=== PATIENT | female | born 1960 | race Caucasian/White ===

== ENCOUNTER 2018-03-15 13:35 | Emergency (ER) | payer BC ==
[2018-03-15] MEDS ORDERED: LET GEL TOPICAL 1 EA SYR TP ONE (13:56)
[2018-03-15] MEDS ORDERED: DOXYCYCLINE HYCLATE 100 MG CAP/TAB PO ONE (13:59)
--- NOTE | 2018-03-15 14:04 | EDPHY ---
H & P Time Seen by Provider: 03/15/18 13:45 HPI/ROS: This patient reports she pulled a tick off of her left posterior thigh while in [place] 1 week ago. Over the past 2 days she has developed erythema itching and mild burning discomfort to the area and is concerned about local infection. She has no other associated symptoms. Her daughter brought her in by private vehicle for further evaluation. ROS: Constitutional: No fevers or flu-like symptoms. No fatigue. HEENT: No lymphadenopathy or other complaints. No headache. Neuro: No numbness tingling or paresthesias. No vision changes. No headache. Pulmonary: No complaints Cardiovascular: No complaints GI: No nausea vomiting Integumentary: No skin rash elsewhere in this patient. No purulent drainage. 7 point ROS is otherwise negative. Past Medical/Surgical History: Hypertension. Mild obesity. Otherwise healthy Smoking Status: Never smoked Physical Exam: Physical Exam Vital signs are normal. General: No acute distress HEENT: Atraumatic. Eyes: Pupils equal and react to light. Extraocular motions are intact. Lungs: No respiratory distress. Cardiac: Brisk capillary refill is intact throughout. Skin: Patient has a 4 x 7 cm area of erythema and mild tenderness without fluctuance. Neuro: Alert and oriented x3 with no sensorimotor deficits. Initial differential diagnosis: Insect bite with local cellulitis. Potential initial target lesion from early Lyme Constitutional: Initial Vital Signs Temperature (C) 36.9 C 03/15/18 13:42 Heart Rate 91 03/15/18 13:42 Respiratory Rate 16 03/15/18 13:42 Blood Pressure 156/90 H 03/15/18 13:42 O2 Sat (%) 94 03/15/18 13:42 O2 Delivery Mode Room Air Allergies/Adverse Reactions: amoxicillin Allergy (Verified 03/15/18 13:44) PT REPORTS RASH Home Medications: Medication Instructions Recorded Cephalexin [Keflex (*)] 500 mg PO TID #21 cap 03/15/18 Doxycycline Hyclate [Vibramycin 100 mg PO BID #20 cap 03/15/18 100 MG (*)] Hydrochlorothiazide 03/15/18 Lisinopril 03/15/18 MDM/Departure - MDM Medications Given: Discontinued Medications Tetracaine/Epinephrine/Lidocaine (Let Gel Topical) 1 ea TP EDNOW ONE Stop: 03/15/18 13:57 Last Admin: 03/15/18 14:00 Dose: 1 ea ED Course/Re-evaluation: Given this patient's lack of any flu-like symptoms fevers or other symptoms, I do not think she has early Lyme disease. However will treat this localized cellulitis with doxycycline to also cover but really or Tuesday if she did have exposure to this. - Depart Disposition: Home, Routine, Self-Care Clinical Impression: Insect bite Qualifiers: Encounter type: initial encounter Qualified Code(s): W57.XXXA - Bitten or stung by nonvenomous insect and other nonvenomous arthropods, initial encounter Cellulitis Qualifiers: Site of cellulitis: extremity Site of cellulitis of extremity: lower extremity Laterality: left Qualified Code(s): L03.116 - Cellulitis of left lower limb Condition: Good Instructions: Cellulitis (ED) Additional Instructions: Diagnosis: Tick bite with cellulitis Plan: Clean the wound daily with warm soapy water Apply warm packs daily for 20-30 minutes to 3 times a day Doxycycline antibiotic If the redness is not improving over the next 3-4 days on the doxycycline loan, then start the Keflex antibiotic in addition intake along with doxycycline. For itching, take an antihistamine. He could try and nonsedating antihistamine during the day such as loratadine at night she could take Benadryl 50 mg since Benadryl also makes most people sleepy. Return for any significant worsening despite the treatment plan. Prescriptions: Cephalexin [Keflex (*)] 500 mg PO TID #21 cap Doxycycline Hyclate [Vibramycin 100 MG (*)] 100 mg PO BID #20 cap
[2018-03-15 15:01] VITALS: BP 148/88
== END 2018-03-15 14:52 | disposition home or self-care (01) ==
LOC: CED 13:35
DX: L03.116 Cellulitis of left lower limb (principal); I10 Essential (primary) hypertension; W57.XXXA Bitten or stung by nonvenomous insect and other nonvenomous arthropods, initial encounter